=== PATIENT | male | born 1955 | race Hispanic/Latino ===

== ENCOUNTER → 2024-09-17 | Outpatient (CLI) | payer OTHER ==
[~2024-09-17] MED LIST: AMOX1TAB16 PO; ATOR10 PO; FAMO20TA8 PO; METO50TA18 PO; TAMS-55 PO
--- NOTE | 2024-09-17 14:36 | HMCIMG ---
Carotid Duplex and color-flow Doppler bilateral History: Altered mental status Comparison: None Findings: No significant plaque is identified on either side. Left Internal Carotid Artery Peak Systolic Velocity (PSV), Left Internal Carotid to Common Carotid Artery peak systolic velocity ratio, Right Internal Carotid Artery Peak Systolic Velocity (PSV) and Right Internal Carotid to Common Carotid Artery peak systolic velocity ratio, are all within normal limits. External carotid artery velocities normal bilaterally. Bilateral vertebral arteries show antegrade flow. Impression: Normal exam. NASCET CRITERIA. The degree of internal carotid artery stenosis is based on NASCET criteria. Normal is no stenosis. Mild is less than 50% stenosis. Moderate is 50-69% stenosis. Severe is 70% to 99% stenosis. Total occlusion is no detectable patent lumen.
--- NOTE | 2024-09-18 11:22 | HMCSR ---
APPROVED REPORT EXAM: Two-dimensional and M-mode echocardiogram with Doppler and color Doppler. INDICATION ICD: R41.0 R41.82 2D Dimensions RVDd4.0 cmLVEF(%)52.5 (>50%)LVED Vol(simp.)92.3 mL IVSd0.8 (0.7-1.1cm)FS(%)26 %LVES Vol(simp.)36.8 mL LVDd3.5 (3.8-5.6cm)LA (2D)3.6 (1.6-4.0cm)LVEF(%, simp.)60 % PWd0.8 (0.7-1.1cm)Ao Root(2D)2.9 (2.0-3.7cm)LA ESV INDEX (BP)27.97 mL/m2 LVDs2.6 (2.5-4.0cm)LVOT diam2.2 (1.8-2.4cm) M-Mode Dimensions EPSS0.5 cm Aortic Valve AoV Vmax1.0 m/Ollie Peak GR3.8 mmHgLVOT Vmax0.9 m/s AoV VTI0.2 mAo Mean GR2.1 mmHgLVOT VTI0.18 m LITTLE (VMAX)3.2 cm2AVA (VTI) 3.2 cm2 Mitral Valve MV E Vmax74.4 cm/sDECEL Ejal543 ms MV A Vmax55.8 cm/sP 1/2 T72 ms E/A ratio1.3MVA (PHT)3.1 cm2 TDI E/E' Medial9.3E/E' Lateral9.3 Medial E' Peak V8.00 cm/sLateral E' Peak V8.00 cm/s Tricuspid Valve TR Vmax2.2 m/sRVSP19.1 mmHg TR Peak GR19.1 mmHg Left Ventricle The left ventricle is normal size. There is normal LV segmental wall motion. There is normal left wilda tricular wall thickness. LVEF is over 65%. The left ventricular diastolic function is normal. Right Ventricle The right ventricle is normal size. The right ventricular systolic function is normal. Atria The left atrium size is normal. The right atrium size is normal. Aortic Valve The aortic valve is normal in structure. No aortic regurgitation is present. There is no aortic valvu lar stenosis. Mitral Valve The mitral valve is normal in structure. There is no mitral valve regurgitation noted. There is no mi tral valve stenosis. Tricuspid Valve The tricuspid valve is normal in structure. There is mild tricuspid valve regurgitation noted. Pulmonic Valve The pulmonary valve is normal in structure. There is no pulmonic valvular regurgitation. Great Vessels The aortic root is normal in size. The IVC is normal in size and collapses >50% with inspiration. Pericardium There is no pericardial effusion. Conclusion LVEF is over 65%.
== END | disposition home or self-care (01) ==
LOC: RAH 13:32
PROVIDERS: ATTEND Family Medicine
DX: I07.1 Rheumatic tricuspid insufficiency (principal); R41.82 Altered mental status, unspecified; G31.89 Other specified degenerative diseases of nervous system; Z79.899 Other long term (current) drug therapy
CPT/HCPCS: 93306; 93880